=== PATIENT | male | born 1960 | race Two or more races ===

== ENCOUNTER → 2016-08-27 | Outpatient (REF) | payer OTHER ==
[2016-08-27 12:55] LABS: ALBUMIN 3.4 GM/DL (3.2-5.2); ALKALINE PHOSPHATASE 173 U/L (45-117); ALT/SGPT 25 U/L (12-78); ANION GAP 8 MEQ/L (8-16); AST/SGOT 23 U/L (15-37); BILIRUBIN,TOTAL 0.6 MG/DL (0.2-1.0); BLOOD UREA NITROGEN 10 MG/DL (7-18); CALCIUM LEVEL 8.2 MG/DL (8.5-10.1); CARBON DIOXIDE LEVEL 28 MEQ/L (21-32); CHLORIDE LEVEL 105 MEQ/L (98-107); CREATININE FOR GFR 0.89 MG/DL (0.70-1.30); GLOMERULAR FILTRATION RATE > 60.0 (>56); GLUCOSE, FASTING 98 MG/DL (70-105); SODIUM LEVEL 141 MEQ/L (136-145); TOTAL PROTEIN 6.5 GM/DL (6.4-8.2)
[2016-08-27 13:20] LABS: MEAN CORPUSCULAR HGB CONC 33.6 g/dl (32.0-36.5); MEAN CORPUSCULAR VOLUME 86.2 fl (80.0-96.0); RED CELL DISTRIBUTION WIDTH 12.9 % (11.5-14.5); WHITE BLOOD COUNT 3.2 K/mm3 (4.0-10.0)
[2016-08-29 00:06] LABS: PSA TOTAL 0.9 ng/mL (0.0-4.0)
== END ==
LOC: M SFHCLERA 08:06
PROVIDERS: ATTEND Family Medicine
DX: R35.0 Frequency of micturition (principal); R07.9 Chest pain, unspecified

== ENCOUNTER → 2016-09-09 | Outpatient (CLI) | payer OTHER ==
--- NOTE | 2016-09-09 10:12 | REP ---
PA LATERAL CHEST: 09/09/2016. Clinical history: Cough. Pain in the right chest area. Findings: No prior study. Two-view show the lungs marginally adequate in the degree of inflation. Some crowded markings in the bases. There is no effusion or dense consolidation. There are a few cuffed bronchi in the perihilar regions that might reflect reactive airway disease or bronchitis. No mass or nodule. Heart not enlarged for this degree of inflation. There is no vascular redistribution or edema. The aorta is normal. Airway intact. The bony thorax shows no acute compression deformity. There are some small osteophytes mid and lower thoracic spine anteriorly. Impression: 1. Some minor perihilar changes of bronchitis or reactive airway disease without dense consolidation, effusion, atelectasis or mass. 2. Degenerative changes in the spine. 3. No cardiomegaly, edema, pneumothorax or acute bony finding. Signed by Rishi Amado MD 09/09/2016 03:29 P
== END ==
LOC: M LRY 09:21
PROVIDERS: ATTEND Family Medicine
DX: R74.8 Abnormal levels of other serum enzymes (principal); R05 Cough

== ENCOUNTER → 2016-09-09 | Outpatient (REF) | payer OTHER ==
[2016-09-09 11:49] LABS: PHOSPHORUS LEVEL 2.6 MG/DL (2.5-4.9)
[2016-09-09 14:45] LABS: FREE T4 1.14 NG/DL (0.76-1.46)
== END ==
LOC: M SFHCLERA 09:19
PROVIDERS: ATTEND Family Medicine
DX: R74.8 Abnormal levels of other serum enzymes (principal); E34.9 Endocrine disorder, unspecified

== ENCOUNTER → 2016-09-09 | Outpatient (CLI) | payer OTHER | LOC: M LRY 09:42 | PROVIDERS: ATTEND Family Medicine | DX: R74.8 Abnormal levels of other serum enzymes (principal); R05 Cough ==

== ENCOUNTER → 2016-09-29 | Outpatient (CLI) | payer OTHER ==
--- NOTE | 2016-09-30 04:18 | REP ---
Clinical: Elevated parathyroid hormone levels. Technique: Real time elizabeth scale ultrasound examination using linear high frequency transducer. Findings: The thyroid gland is normal in contour, size, echogenicity, and overall appearance without nodule or cystic changes appreciated. Right lobe measures 5.1 x 1.4 x 1.7 cm. Left lobe measures 4.0 x 1.7 x 1.6 cm. Isthmus measures 4.1 mm in width. Parathyroid glands are not visualized. A few scattered normal appearing lymph nodes identified. Impression: Normal thyroid gland. Parathyroid glands not visualized. Signed by Claude Baxter MD 09/30/2016 04:10 A
--- NOTE | 2016-10-02 10:45 | REP ---
Clinical: Elevated liver function tests. Technique: Transabdominal pelvic ultrasound using curved array transducer. Findings: Examination is limited due to technical factors and body habitus. Liver and pancreas are normal in contour, size, and echogenicity without focal hepatic or pancreatic lesions identified. The gallbladder is normal and without gallstones, wall thickening, or pericholecystic fluid. Biliary ductal dilatation is appreciated and the common bile duct measures 4.6 mm diameter. Right kidney is normal in reniform shape without hydronephrosis and measures 9.8 x 5.8 x 4.9 cm. No obvious ascites. Impression: Limited examination. No obvious abnormality noted. Signed by Claude Baxter MD 09/30/2016 03:48 A
== END ==
LOC: M LRY 08:51
PROVIDERS: ATTEND Family Medicine
DX: R74.8 Abnormal levels of other serum enzymes (principal); E34.9 Endocrine disorder, unspecified

== ENCOUNTER → 2016-12-14 | Outpatient (REF) | payer OTHER | LOC: M SMT 12:52 | PROVIDERS: ATTEND Nurse Practitioner Women's Health | DX: R35.0 Frequency of micturition (principal) ==

== ENCOUNTER → 2017-02-23 | Outpatient (REF) | payer OTHER | LOC: M LABDRAW1 11:12 | PROVIDERS: ATTEND Internal Medicine Endocrinology, Diabetes & Metabolism | DX: E21.1 Secondary hyperparathyroidism, not elsewhere classified (principal) ==

== ENCOUNTER → 2017-04-19 | Outpatient (REF) | payer OTHER ==
[2017-04-19 12:24] LABS: ANION GAP 6 MEQ/L (8-16); BLOOD UREA NITROGEN 16 MG/DL (7-18); CALCIUM LEVEL 9.1 MG/DL (8.5-10.1); CARBON DIOXIDE LEVEL 31 MEQ/L (21-32); CHLORIDE LEVEL 105 MEQ/L (98-107); CREATININE FOR GFR 0.82 MG/DL (0.70-1.30); GLOMERULAR FILTRATION RATE > 60.0 (>56); GLUCOSE, FASTING 96 MG/DL (70-105); POTASSIUM SERUM 4.6 MEQ/L (3.5-5.1); SODIUM LEVEL 142 MEQ/L (136-145)
== END ==
LOC: M SFHCLERA 07:59
PROVIDERS: ATTEND Family Medicine
DX: E55.9 Vitamin D deficiency, unspecified (principal); I25.2 Old myocardial infarction; G47.33 Obstructive sleep apnea (adult) (pediatric); R35.0 Frequency of micturition

== ENCOUNTER → 2017-06-16 | Outpatient (REF) | payer OTHER ==
[2017-06-16 11:40] LABS: TOTAL 25(OH) VITAMIN D 24.5 NG/ML (30.0-100.0)
[2017-06-16 12:26] LABS: CALCIUM LEVEL 9.1 MG/DL (8.5-10.1)
[2017-06-16 12:26] LABS: ALKALINE PHOSPHATASE 186 U/L (45-117)
[2017-06-19 14:11] LABS: ALK PHOSPHATASE BONE SPECIFIC 22.3 ug/L (7.5-26.1)
== END ==
LOC: M LABDRAW1 11:00
DX: E21.1 Secondary hyperparathyroidism, not elsewhere classified (principal)
CPT/HCPCS: 82310

== ENCOUNTER → 2017-12-09 | Outpatient (REF) | payer OTHER ==
[2017-12-09 20:35] LABS: BASO % 0.4 % (0.0-1.0); EOS # 0.1 10^3/uL (0.0-0.50); EOS % 1.3 % (0.0-3.0); HEMATOCRIT 47.2 % (42.0-52.0); HEMOGLOBIN 15.5 g/dl (13.5-17.5); IMMATURE GRANULOCYTE % 0.6 % (0-3.0); LYMPH # 1.4 10^3/uL (1.5-4.5); LYMPH % 20.9 % (24.0-44.0); MEAN CORPUSCULAR HEMOGLOBIN 29.9 pg (27.0-33.0); MEAN CORPUSCULAR HGB CONC 32.8 g/dl (32.0-36.5); MEAN CORPUSCULAR VOLUME 90.9 fl (80.0-96.0); MONO # 0.5 10^3/uL (0.0-0.8); MONO % 6.8 % (0.0-5.0); NEUTROPHILS # 4.7 10^3/uL (1.8-7.7); PLATELET COUNT, AUTOMATED 255 10^3/uL (150-450); RED BLOOD COUNT 5.19 10^6/uL (4.30-6.10); RED CELL DISTRIBUTION WIDTH 13.2 % (11.5-14.5); WHITE BLOOD COUNT 6.8 10^3/uL (4.0-10.0)
[2017-12-09 20:42] LABS: ESTIMATED AVERAGE GLUCOSE 108 MG/DL (60-110); HEMOGLOBIN A1c 5.4 %
[2017-12-09 20:45] LABS: ALBUMIN 3.5 GM/DL (3.2-5.2); ALBUMIN/GLOBULIN RATIO 1.13 (1.00-1.93); ALKALINE PHOSPHATASE 198 U/L (45-117); ALT/SGPT 24 U/L (12-78); ANION GAP 8 MEQ/L (8-16); AST/SGOT 20 U/L (7-37); BILIRUBIN,TOTAL 0.5 MG/DL (0.2-1.0); BLOOD UREA NITROGEN 15 MG/DL (7-18); CALCIUM LEVEL 8.5 MG/DL (8.5-10.1); CARBON DIOXIDE LEVEL 30 MEQ/L (21-32); CHLORIDE LEVEL 105 MEQ/L (98-107); CHOLESTEROL LEVEL 231 MG/DL (<200); CHOLESTEROL RISK RATIO 4.442 (<5); GLOMERULAR FILTRATION RATE > 60.0 (>56); GLUCOSE, FASTING 92 MG/DL (70-100); HDL CHOLESTEROL 52 MG/DL (>40); LDL CHOLESTEROL 156.4 MG/DL (<100); NON-HDL-C 179 MG/DL; SODIUM LEVEL 143 MEQ/L (136-145); TOTAL 25(OH) VITAMIN D 20.8 NG/ML (30.0-100.0); TOTAL PROTEIN 6.6 GM/DL (6.4-8.2); TRIGLYCERIDES LEVEL 113 MG/DL (<150)
== END ==
LOC: M SFHCLERA 14:51
DX: E66.01 Morbid (severe) obesity due to excess calories (principal); E55.9 Vitamin D deficiency, unspecified

== ENCOUNTER → 2017-12-09 | Outpatient (CLI) | payer OTHER | LOC: M LRY 15:53 | DX: D17.1 Benign lipomatous neoplasm of skin and subcutaneous tissue of trunk (principal) | CPT/HCPCS: 76882 ==

== ENCOUNTER → 2018-03-21 | Outpatient (CLI) | payer OTHER | LOC: M CARPUL 08:05 | DX: M79.89 Other specified soft tissue disorders (principal) | CPT/HCPCS: 93306 ==

== ENCOUNTER → 2018-04-11 | Outpatient (REF) | payer OTHER ==
[2018-04-11 12:01] LABS: ANION GAP 7 MEQ/L (8-16); BLOOD UREA NITROGEN 10 MG/DL (7-18); CALCIUM LEVEL 8.7 MG/DL (8.5-10.1); CARBON DIOXIDE LEVEL 30 MEQ/L (21-32); CHLORIDE LEVEL 105 MEQ/L (98-107); GLOMERULAR FILTRATION RATE > 60.0 (>56); GLUCOSE, FASTING 109 MG/DL (70-100); POTASSIUM SERUM 3.9 MEQ/L (3.5-5.1); SODIUM LEVEL 142 MEQ/L (136-145)
== END ==
LOC: M SFHCLERA 09:12
DX: M79.89 Other specified soft tissue disorders (principal)

== ENCOUNTER 2018-04-13 20:40 | Inpatient (IN) | payer OTHER ==
[2018-04-13] MEDS: HYDROMORPHONE HCL 0.5 MG/ 0.5 ML SYRINGE (J1170 PER 1) IV ×2 (21:18→22:11)
[2018-04-13 21:25] LABS: BASO % 0.3 % (0.0-1.0); EOS # 0.1 10^3/uL (0.0-0.50); HEMOGLOBIN 14.6 g/dl (13.5-17.5); IMMATURE GRANULOCYTE % 0.4 % (0-3.0); LYMPH # 1.9 10^3/uL (1.5-4.5); LYMPH % 20.1 % (24.0-44.0); MEAN CORPUSCULAR HEMOGLOBIN 30.2 pg (27.0-33.0); MEAN CORPUSCULAR VOLUME 88.8 fl (80.0-96.0); MONO # 0.6 10^3/uL (0.0-0.8); MONO % 6.8 % (0.0-5.0); NEUTROPHILS # 6.6 10^3/uL (1.8-7.7); NEUTROPHILS % 71.4 % (36.0-66.0); PLATELET COUNT, AUTOMATED 245 10^3/uL (150-450); RED BLOOD COUNT 4.84 10^6/uL (4.30-6.10); WHITE BLOOD COUNT 9.2 10^3/uL (4.0-10.0)
[2018-04-13] MEDS: HEPARIN SOD (PORCINE) 5000 UNITS/ML VIAL IV (21:29)
[2018-04-13] MEDS: HEPARIN DRIP 25,000 UNITS in APPROPRIATE DILUENT 1 EA IV (21:33)
[2018-04-13] MEDS ORDERED: ISOVUE-370 76% 100ML VIAL (Q9967) As Ordered (21:39)
[2018-04-13 21:40] LABS: INR 0.94; PROTHROMBIN TIME 12.7 SECONDS (12.1-14.4)
[2018-04-13 21:41] LABS: PARTIAL THROMBOPLASTIN TIME 26.8 SECONDS (25.4-37.6)
[2018-04-13 21:53] LABS: ANION GAP 8 MEQ/L (8-16); BLOOD UREA NITROGEN 10 MG/DL (7-18); CALCIUM LEVEL 8.4 MG/DL (8.5-10.1); CARBON DIOXIDE LEVEL 27 MEQ/L (21-32); CHLORIDE LEVEL 106 MEQ/L (98-107); GLOMERULAR FILTRATION RATE > 60.0 (>56); GLUCOSE, FASTING 131 MG/DL (70-100); POTASSIUM SERUM 3.7 MEQ/L (3.5-5.1); SODIUM LEVEL 141 MEQ/L (136-145)
[2018-04-13] MEDS ORDERED: NS 1,000 ML IV (23:44)
[2018-04-13] MEDS: LR 1,000 ML IV (23:44)
[2018-04-13] MEDS ORDERED: diphenhydrAMINE INJ 50MG/ML VIAL (J1200) IV (23:45)
[2018-04-13] MEDS ORDERED: BISACODYL 10 MG SUPP PR (23:45)
[2018-04-13] MEDS ORDERED: NALOXONE INJ 0.4 MG/1 ML VIAL (J2310) IV (23:45)
[2018-04-13] MEDS ORDERED: EPIDURAL/PCA KEYS XX (23:45)
[2018-04-13] MEDS ORDERED: NALBUPHINE HCL 10 MG/ML AMP (J2300) IV (23:45)
[2018-04-13] MEDS ORDERED: ONDANSETRON 4MG/2ML VIAL (J2405) IV (23:45)
[2018-04-14 02:13] LABS: HEMATOCRIT 42.3 % (42.0-52.0); HEMOGLOBIN 14.1 g/dl (13.5-17.5); MEAN CORPUSCULAR HEMOGLOBIN 30.1 pg (27.0-33.0); MEAN CORPUSCULAR HGB CONC 33.3 g/dl (32.0-36.5); MEAN CORPUSCULAR VOLUME 90.4 fl (80.0-96.0); PLATELET COUNT, AUTOMATED 222 10^3/uL (150-450); RED BLOOD COUNT 4.68 10^6/uL (4.30-6.10); WHITE BLOOD COUNT 9.6 10^3/uL (4.0-10.0)
[2018-04-14 02:25] LABS: PARTIAL THROMBOPLASTIN TIME 43.8 SECONDS (25.4-37.6)
[2018-04-14] MEDS: HEPARIN DRIP 25,000 UNITS in APPROPRIATE DILUENT 1 EA IV (03:42)
[2018-04-14 04:02] LABS: PARTIAL THROMBOPLASTIN TIME 37.3 SECONDS (25.4-37.6)
[2018-04-14] MEDS: MORPHINE 1MG/ML IN 0.9% NACL 100ML IV BAG IV (06:43)
[2018-04-14 06:54] LABS: BASO % 0.5 % (0.0-1.0); EOS # 0.1 10^3/uL (0.0-0.50); EOS % 0.8 % (0.0-3.0); HEMATOCRIT 44.1 % (42.0-52.0); HEMOGLOBIN 14.6 g/dl (13.5-17.5); IMMATURE GRANULOCYTE % 0.3 % (0-3.0); LYMPH # 1.7 10^3/uL (1.5-4.5); LYMPH % 22.3 % (24.0-44.0); MEAN CORPUSCULAR HEMOGLOBIN 30.4 pg (27.0-33.0); MEAN CORPUSCULAR HGB CONC 33.1 g/dl (32.0-36.5); MEAN CORPUSCULAR VOLUME 91.7 fl (80.0-96.0); MONO # 0.6 10^3/uL (0.0-0.8); MONO % 7.5 % (0.0-5.0); NEUTROPHILS # 5.3 10^3/uL (1.8-7.7); NEUTROPHILS % 68.6 % (36.0-66.0); PLATELET COUNT, AUTOMATED 190 10^3/uL (150-450); RED BLOOD COUNT 4.81 10^6/uL (4.30-6.10); RED CELL DISTRIBUTION WIDTH 13.2 % (11.5-14.5); WHITE BLOOD COUNT 7.8 10^3/uL (4.0-10.0)
[2018-04-14 07:29] LABS: ANION GAP 7 MEQ/L (8-16); BLOOD UREA NITROGEN 11 MG/DL (7-18); CALCIUM LEVEL 8.3 MG/DL (8.5-10.1); CARBON DIOXIDE LEVEL 25 MEQ/L (21-32); CHLORIDE LEVEL 109 MEQ/L (98-107); GLOMERULAR FILTRATION RATE > 60.0 (>56); GLUCOSE, FASTING 90 MG/DL (70-100); SODIUM LEVEL 141 MEQ/L (136-145)
[2018-04-14] MEDS: DOCUSATE SODIUM 100 MG CAP PO ×2 (09:00→20:17)
[2018-04-14] MEDS: SENOKOT S TAB PO ×2 (09:00→20:17)
[2018-04-14] MEDS: FUROSEMIDE 20 MG TAB PO (09:00)
[2018-04-14 10:00] LABS: PARTIAL THROMBOPLASTIN TIME 44.5 SECONDS (25.4-37.6)
[2018-04-14] MEDS: LR 1,000 ML IV ×3 (10:44→20:18)
[2018-04-14] MEDS: PANTOPRAZOLE 40MG TAB (PROTONIX) PO (10:45)
[2018-04-14] MEDS ORDERED: KETOROLAC 60 MG/2 ML VIAL (J1885) As Ordered (13:23)
[2018-04-14] MEDS ORDERED: dexameTHASONE 4 MG/ML 1ML VIAL (J1100) As Ordered (13:23)
[2018-04-14] MEDS ORDERED: fentaNYL 100 MCG/2 ML INJECTION (J3010) As Ordered (13:23)
[2018-04-14] MEDS ORDERED: ROCURONIUM BROMIDE 50 MG/5 ML VIAL As Ordered (13:23)
[2018-04-14] MEDS ORDERED: ONDANSETRON 4MG/2ML VIAL (J2405) As Ordered ×2 (13:23→16:22)
[2018-04-14] MEDS ORDERED: PROPOFOL 200 MG/20 ML VIAL As Ordered (13:23)
[2018-04-14] MEDS ORDERED: LIDOCAINE 2% INJ 100 MG/5 ML SDV (FOR ANES.) As Ordered (13:23)
[2018-04-14] MEDS ORDERED: MIDAZOLAM INJ 2 MG/2 ML VIAL (J2250) As Ordered (13:24)
[2018-04-14] MEDS: ceFAZolin 2 GM/D5W 50 ML IV BAG (J0690 PER 500MG) As Ordered (14:50)
[2018-04-14] MEDS ORDERED: HEPARIN 25,000 UNITS/250 ML D5W BAG (100 UNITS/ML) As Ordered (14:51)
[2018-04-14] MEDS: LIDOCAINE 1% SDV INJ 30 ML VIAL As Ordered (14:59)
[2018-04-14] MEDS: BUPIVACAINE HCL 0.5% 30 ML VIAL As Ordered (14:59)
[2018-04-14] MEDS ORDERED: HEPARIN SOD (PORCINE) 5000 UNITS/ML VIAL As Ordered (15:07)
[2018-04-14] MEDS: THROMBIN SOLN 20,000 UNITS KIT As Ordered (15:10)
[2018-04-14] MEDS: HEPARIN SOD (PORCINE) 5000 UNITS/ML VIAL As Ordered (15:11)
[2018-04-14] MEDS ORDERED: SUGAMMADEX SODIUM 500 MG/5 ML VIAL (BRIDION) As Ordered (15:36)
[2018-04-14] MEDS: ONDANSETRON 4MG/2ML VIAL (J2405) IV (16:28)
[2018-04-14] MEDS ORDERED: MORPHINE 10 MG/ML 1ML VIAL (J2270) IV (16:30)
[2018-04-14] MEDS ORDERED: PERCOCET 5MG/325MG TAB PO (16:30)
[2018-04-14] MEDS ORDERED: fentaNYL 100 MCG/2 ML INJECTION (J3010) IV (16:30)
[2018-04-14 20:15] LABS: PARTIAL THROMBOPLASTIN TIME 84.3 SECONDS (25.4-37.6)
[2018-04-14] MEDS: ACETAMINOPHEN TAB 650MG DOSE (2X325MG) PO (20:17)
[2018-04-15] MEDS: LR 1,000 ML IV (01:01)
[2018-04-15 03:37] LABS: PARTIAL THROMBOPLASTIN TIME 57.2 SECONDS (25.4-37.6)
[2018-04-15] MEDS: HEPARIN SOD (PORCINE) 5000 UNITS/ML VIAL IV (03:54)
[2018-04-15] MEDS: HEPARIN DRIP 25,000 UNITS in APPROPRIATE DILUENT 1 EA IV ×2 (06:35→23:25)
[2018-04-15 08:59] LABS: ANION GAP 6 MEQ/L (8-16); BLOOD UREA NITROGEN 10 MG/DL (7-18); CALCIUM LEVEL 8.3 MG/DL (8.5-10.1); CARBON DIOXIDE LEVEL 29 MEQ/L (21-32); CHLORIDE LEVEL 105 MEQ/L (98-107); GLOMERULAR FILTRATION RATE > 60.0 (>56); GLUCOSE, FASTING 139 MG/DL (70-100); POTASSIUM SERUM 4.6 MEQ/L (3.5-5.1); SODIUM LEVEL 140 MEQ/L (136-145)
[2018-04-15 09:01] LABS: HEMATOCRIT 40.4 % (42.0-52.0); HEMOGLOBIN 13.3 g/dl (13.5-17.5); MEAN CORPUSCULAR HEMOGLOBIN 30.2 pg (27.0-33.0); MEAN CORPUSCULAR HGB CONC 32.9 g/dl (32.0-36.5); MEAN CORPUSCULAR VOLUME 91.6 fl (80.0-96.0); PLATELET COUNT, AUTOMATED 211 10^3/uL (150-450); RED BLOOD COUNT 4.41 10^6/uL (4.30-6.10); RED CELL DISTRIBUTION WIDTH 12.8 % (11.5-14.5); WHITE BLOOD COUNT 8.1 10^3/uL (4.0-10.0)
[2018-04-15] MEDS: SENOKOT S TAB PO ×2 (09:13→20:13)
[2018-04-15] MEDS: DOCUSATE SODIUM 100 MG CAP PO ×2 (09:13→20:13)
[2018-04-15] MEDS: PANTOPRAZOLE 40MG TAB (PROTONIX) PO (09:13)
[2018-04-15] MEDS: FUROSEMIDE 20 MG TAB PO (09:13)
[2018-04-15] MEDS: PERCOCET 5MG/325MG TAB PO ×2 (10:30→20:14)
[2018-04-15 17:19] LABS: PARTIAL THROMBOPLASTIN TIME 70.5 SECONDS (25.4-37.6)
[2018-04-16 06:45] LABS: PARTIAL THROMBOPLASTIN TIME 68.2 SECONDS (25.4-37.6)
[2018-04-16] MEDS: SENOKOT S TAB PO ×2 (08:27→20:15)
[2018-04-16] MEDS: PANTOPRAZOLE 40MG TAB (PROTONIX) PO (08:28)
[2018-04-16] MEDS: FUROSEMIDE 20 MG TAB PO (08:28)
[2018-04-16] MEDS: DOCUSATE SODIUM 100 MG CAP PO ×2 (08:28→20:14)
[2018-04-16] MEDS: HEPARIN DRIP 25,000 UNITS in APPROPRIATE DILUENT 1 EA IV (13:34)
[2018-04-16] MEDS: PERCOCET 5MG/325MG TAB PO ×2 (17:38→20:15)
[2018-04-17] MEDS: HEPARIN DRIP 25,000 UNITS in APPROPRIATE DILUENT 1 EA IV ×2 (02:47→15:22)
[2018-04-17] MEDS: PERCOCET 5MG/325MG TAB PO ×2 (03:37→09:06)
[2018-04-17] MEDS: ACETAMINOPHEN TAB 650MG DOSE (2X325MG) PO (05:40)
[2018-04-17 06:16] LABS: PARTIAL THROMBOPLASTIN TIME 61.3 SECONDS (25.4-37.6)
[2018-04-17] MEDS: HEPARIN SOD (PORCINE) 5000 UNITS/ML VIAL IV (07:13)
[2018-04-17] MEDS: SENOKOT S TAB PO ×2 (08:02→20:11)
[2018-04-17] MEDS: PANTOPRAZOLE 40MG TAB (PROTONIX) PO (08:02)
[2018-04-17] MEDS: DOCUSATE SODIUM 100 MG CAP PO ×2 (08:02→20:12)
[2018-04-17] MEDS: FUROSEMIDE 20 MG TAB PO (08:03)
[2018-04-17 12:41] LABS: PARTIAL THROMBOPLASTIN TIME 105.5 SECONDS (25.4-37.6)
[2018-04-17 18:32] LABS: PARTIAL THROMBOPLASTIN TIME 67.3 SECONDS (25.4-37.6)
[2018-04-17] MEDS: MOM 30ML SUSPENSION UDC PO (20:11)
[2018-04-18 00:42] LABS: PARTIAL THROMBOPLASTIN TIME 56.5 SECONDS (25.4-37.6)
[2018-04-18] MEDS: HEPARIN SOD (PORCINE) 5000 UNITS/ML VIAL IV ×2 (00:59→14:01)
[2018-04-18] MEDS: HEPARIN DRIP 25,000 UNITS in APPROPRIATE DILUENT 1 EA IV ×2 (04:41→18:26)
[2018-04-18 07:27] LABS: HEMATOCRIT 41.1 % (42.0-52.0); HEMOGLOBIN 13.7 g/dl (13.5-17.5); MEAN CORPUSCULAR HEMOGLOBIN 30.2 pg (27.0-33.0); MEAN CORPUSCULAR HGB CONC 33.3 g/dl (32.0-36.5); MEAN CORPUSCULAR VOLUME 90.7 fl (80.0-96.0); PLATELET COUNT, AUTOMATED 197 10^3/uL (150-450); RED BLOOD COUNT 4.53 10^6/uL (4.30-6.10); RED CELL DISTRIBUTION WIDTH 13.1 % (11.5-14.5); WHITE BLOOD COUNT 6.5 10^3/uL (4.0-10.0)
[2018-04-18 07:39] LABS: PARTIAL THROMBOPLASTIN TIME 98.4 SECONDS (25.4-37.6)
[2018-04-18 07:48] LABS: ALBUMIN 2.7 GM/DL (3.2-5.2); ANION GAP 3 MEQ/L (8-16); BLOOD UREA NITROGEN 11 MG/DL (7-18); CALCIUM LEVEL 8.6 MG/DL (8.5-10.1); CARBON DIOXIDE LEVEL 33 MEQ/L (21-32); CHLORIDE LEVEL 102 MEQ/L (98-107); CREATININE FOR GFR 0.78 MG/DL (0.70-1.30); GLOMERULAR FILTRATION RATE > 60.0 (>56); GLUCOSE, FASTING 95 MG/DL (70-100); PHOSPHORUS LEVEL 2.8 MG/DL (2.5-4.9); POTASSIUM SERUM 4.1 MEQ/L (3.5-5.1); SODIUM LEVEL 138 MEQ/L (136-145)
[2018-04-18] MEDS: SENOKOT S TAB PO ×2 (09:00→20:22)
[2018-04-18] MEDS: DOCUSATE SODIUM 100 MG CAP PO ×2 (09:00→20:22)
[2018-04-18] MEDS: FUROSEMIDE 20 MG TAB PO (09:00)
[2018-04-18] MEDS: PANTOPRAZOLE 40MG TAB (PROTONIX) PO (09:00)
[2018-04-18 13:12] LABS: PARTIAL THROMBOPLASTIN TIME 60.9 SECONDS (25.4-37.6)
[2018-04-18 20:05] LABS: PARTIAL THROMBOPLASTIN TIME 96.8 SECONDS (25.4-37.6)
[2018-04-19 02:05] LABS: PARTIAL THROMBOPLASTIN TIME 85.9 SECONDS (25.4-37.6)
[2018-04-19] MEDS: ACETAMINOPHEN TAB 650MG DOSE (2X325MG) PO ×2 (03:46→08:47)
[2018-04-19] MEDS: HEPARIN DRIP 25,000 UNITS in APPROPRIATE DILUENT 1 EA IV (06:10)
[2018-04-19 08:24] LABS: BASO % 0.3 % (0.0-1.0); EOS # 0.3 10^3/uL (0.0-0.50); EOS % 3.7 % (0.0-3.0); HEMOGLOBIN 14.3 g/dl (13.5-17.5); IMMATURE GRANULOCYTE % 0.7 % (0-3.0); LYMPH # 1.3 10^3/uL (1.5-4.5); LYMPH % 19.2 % (24.0-44.0); MEAN CORPUSCULAR HEMOGLOBIN 29.8 pg (27.0-33.0); MEAN CORPUSCULAR HGB CONC 33.3 g/dl (32.0-36.5); MEAN CORPUSCULAR VOLUME 89.6 fl (80.0-96.0); MONO # 0.5 10^3/uL (0.0-0.8); MONO % 7.1 % (0.0-5.0); NEUTROPHILS # 4.6 10^3/uL (1.8-7.7); PLATELET COUNT, AUTOMATED 194 10^3/uL (150-450); WHITE BLOOD COUNT 6.7 10^3/uL (4.0-10.0)
[2018-04-19 08:38] LABS: PARTIAL THROMBOPLASTIN TIME 93.2 SECONDS (25.4-37.6)
[2018-04-19] MEDS: PANTOPRAZOLE 40MG TAB (PROTONIX) PO (08:47)
[2018-04-19] MEDS: ASPIRIN 81 MG ENTERIC TAB PO (08:48)
[2018-04-19] MEDS: FUROSEMIDE 20 MG TAB PO (08:48)
[2018-04-19] MEDS: DOCUSATE SODIUM 100 MG CAP PO ×2 (08:48→20:30)
[2018-04-19] MEDS: SENOKOT S TAB PO ×2 (08:48→20:30)
[2018-04-19 10:15] LABS: DRVV SCREEN 42.6 SEC
[2018-04-19] MEDS: LR 1,000 ML IV (16:25)
[2018-04-19] MEDS ORDERED: fentaNYL 100 MCG/2 ML INJECTION (J3010) IV (16:30)
[2018-04-19] MEDS ORDERED: MORPHINE 10 MG/ML 1ML VIAL (J2270) IV (16:30)
[2018-04-19] MEDS ORDERED: MORPHINE 1MG/ML IN 0.9% NACL 100ML IV BAG IV (16:30)
[2018-04-19] MEDS ORDERED: NALBUPHINE HCL 10 MG/ML AMP (J2300) IV (16:30)
[2018-04-19] MEDS ORDERED: diphenhydrAMINE INJ 50MG/ML VIAL (J1200) IV (16:30)
[2018-04-19] MEDS ORDERED: EPIDURAL/PCA KEYS XX (16:30)
[2018-04-19] MEDS ORDERED: PERCOCET 5MG/325MG TAB PO (16:30)
[2018-04-19] MEDS ORDERED: ONDANSETRON 4MG/2ML VIAL (J2405) IV ×2 (16:30)
[2018-04-19] MEDS ORDERED: NALOXONE INJ 0.4 MG/1 ML VIAL (J2310) IV (16:30)
[2018-04-19] MEDS: APIXABAN 5 MG TAB (ELIQUIS) PO (18:45)
[2018-04-19 20:53] LABS: PARTIAL THROMBOPLASTIN TIME 31.7 SECONDS (25.4-37.6)
[2018-04-20] MEDS: LR 1,000 ML IV (04:55)
[2018-04-20] MEDS: PERCOCET 5MG/325MG TAB PO (04:57)
[2018-04-20] MEDS: ASPIRIN 81 MG ENTERIC TAB PO (08:35)
[2018-04-20] MEDS: APIXABAN 5 MG TAB (ELIQUIS) PO (08:36)
[2018-04-20] MEDS: FUROSEMIDE 20 MG TAB PO (08:36)
[2018-04-20] MEDS: DOCUSATE SODIUM 100 MG CAP PO (08:36)
[2018-04-20] MEDS: SENOKOT S TAB PO (08:36)
[2018-04-20] MEDS: PANTOPRAZOLE 40MG TAB (PROTONIX) PO (08:36)
[2018-04-25 14:09] LABS: ANTINUCLEAR ANTIBODIES DIRECT Negative (Negative); CARDIOLIPIN IGA ANTIBODY <9 APL U/mL (0-11); CARDIOLIPIN IGG ANTIBODY <9 GPL U/mL (0-14); CARDIOLIPIN IGM ANTIBODY 9 MPL U/mL (0-12)
== END 2018-04-20 15:15 | disposition home or self-care (01) | DRG 271 ==
LOC: M MSPAV 04-14 05:41 → M ED 20:40 → M ED INP 23:44
PROC: 04CJ0ZZ Extirpation of Matter from Left External Iliac Artery, Open Approach (ICD-10-PCS; principal; 2018-04-14 11:05)
PROC: 04CL0ZZ Extirpation of Matter from Left Femoral Artery, Open Approach (ICD-10-PCS; 2018-04-14 11:05)
PROC: 04CD0ZZ Extirpation of Matter from Left Common Iliac Artery, Open Approach (ICD-10-PCS; 2018-04-14 11:05)
PROC: 04CU0ZZ Extirpation of Matter from Left Peroneal Artery, Open Approach (ICD-10-PCS; 2018-04-14 11:05)
PROC: 04CN0ZZ Extirpation of Matter from Left Popliteal Artery, Open Approach (ICD-10-PCS; 2018-04-14 11:05)
DX: I70.202 Unspecified atherosclerosis of native arteries of extremities, left leg (principal); I82.412 Acute embolism and thrombosis of left femoral vein; Z68.42 Body mass index [BMI] 45.0-49.9, adult; I70.92 Chronic total occlusion of artery of the extremities; I48.91 Unspecified atrial fibrillation; E66.01 Morbid (severe) obesity due to excess calories; R31.9 Hematuria, unspecified; E78.5 Hyperlipidemia, unspecified; N40.0 Benign prostatic hyperplasia without lower urinary tract symptoms; I25.2 Old myocardial infarction; G47.33 Obstructive sleep apnea (adult) (pediatric); Z96.652 Presence of left artificial knee joint; Z79.891 Long term (current) use of opiate analgesic; Z79.899 Other long term (current) drug therapy; Z86.718 Personal history of other venous thrombosis and embolism; Z98.84 Bariatric surgery status

== ENCOUNTER → 2018-05-20 | Outpatient (REF) | payer OTHER ==
[~2018-05-20] MED LIST: ARTI99.0 OU; ASPI81CH PO; ELIQ5TAB PO; FURO20TA2 PO; PERCOCET PO; TRAM50TA2 PO; TYLE500T78 PO
== END ==
LOC: M SFHCLERA 09:13
PROVIDERS: ATTEND Nurse Practitioner Family
DX: E55.9 Vitamin D deficiency, unspecified (principal); M79.89 Other specified soft tissue disorders

== ENCOUNTER → 2018-06-22 | Outpatient (REF) | payer OTHER ==
[2018-06-22 13:19] LABS: BASO % 0.7 % (0.0-1.0); EOS # 0.1 10^3/uL (0.0-0.50); EOS % 2.5 % (0.0-3.0); HEMATOCRIT 45.7 % (42.0-52.0); LYMPH # 1.8 10^3/uL (1.5-4.5); LYMPH % 31.2 % (24.0-44.0); MEAN CORPUSCULAR HGB CONC 32.8 g/dl (32.0-36.5); MEAN CORPUSCULAR VOLUME 88.2 fl (80.0-96.0); MONO # 0.4 10^3/uL (0.0-0.8); MONO % 6.8 % (0.0-5.0); NEUTROPHILS # 3.3 10^3/uL (1.8-7.7); NEUTROPHILS % 58.4 % (36.0-66.0); PLATELET COUNT, AUTOMATED 297 10^3/uL (150-450); RED BLOOD COUNT 5.18 10^6/uL (4.30-6.10); WHITE BLOOD COUNT 5.7 10^3/uL (4.0-10.0)
[2018-06-22 13:30] LABS: ALBUMIN 3.5 GM/DL (3.2-5.2); ALT/SGPT 18 U/L (12-78); BILIRUBIN,TOTAL 0.5 MG/DL (0.2-1.0); BLOOD UREA NITROGEN 10 MG/DL (7-18); CALCIUM LEVEL 8.7 MG/DL (8.5-10.1); CARBON DIOXIDE LEVEL 29 MEQ/L (21-32); CHLORIDE LEVEL 105 MEQ/L (98-107); GLOMERULAR FILTRATION RATE > 60.0 (>56); GLUCOSE, FASTING 93 MG/DL (70-100); POTASSIUM SERUM 4.4 MEQ/L (3.5-5.1); SODIUM LEVEL 139 MEQ/L (136-145); TOTAL PROTEIN 6.7 GM/DL (6.4-8.2)
== END ==
LOC: M SFHCLERA 09:05
PROVIDERS: ATTEND Family Medicine
DX: Z01.818 Encounter for other preprocedural examination (principal); D68.59 Other primary thrombophilia

== ENCOUNTER → 2018-06-30 | Outpatient (REF) | payer OTHER ==
[2018-06-30 17:36] LABS: FOLATE 3.7 NG/ML
[2018-07-05 14:17] LABS: VITAMIN B6,PYRIDOXAL PHOSPHATE 1.9 ug/L (5.3-46.7)
== END ==
LOC: M SFHCLERA 10:07
PROVIDERS: ATTEND Family Medicine
DX: E72.11 Homocystinuria (principal)

== ENCOUNTER → 2018-06-30 | Outpatient (CLI) | payer OTHER ==
--- NOTE | 2018-06-30 11:18 | REP ---
LEFT FOURTH DIGIT, FOUR VIEWS: There is no evidence of an acute fracture, dislocation or intrinsic bone disease. IMPRESSION: No fracture or dislocation. Electronically Signed by Fili Campoverde MD 06/30/2018 12:00 P
== END ==
LOC: M LRY 09:46
PROVIDERS: ATTEND Family Medicine
DX: M20.012 Mallet finger of left finger(s) (principal)

== ENCOUNTER → 2018-08-03 | Outpatient (CLI) | payer OTHER ==
--- NOTE | 2018-08-04 05:38 | REP ---
Clinical: Status post left iliac artery endarterectomy. Technique: Real time elizabeth scale and color Doppler evaluation of the left lower extremity arterial vasculature using linear high frequency transducer. Findings: The ankle to brachial index of the left lower extremity is 1.2. Color Doppler interrogation demonstrates normal triphasic wave patterns from the common femoral artery through the proximal posterior tibial artery and the visualized distal anterior tibial artery. Mild atheromatous plaquing is noted throughout the visualized left lower extremity. Monophasic wave pattern noted of the distal posterior tibial artery. PSV(cm/sec) LEFT Common femoral artery 81 cm/s triphasic Profunda femoris artery 84 cm/s triphasic Proximal superficial femoral artery 106 cm/s triphasic Mid superficial femoral artery 91 cm/s triphasic Distal superficial femoral artery 80 cm/s triphasic Popliteal artery 64 cm/s triphasic Proximal SUMI 53 cm/s triphasic Tibioperoneal trunk 35 cm/s triphasic Proximal MAC ARTIST 52 cm/s triphasic Distal MAC ARTIST 23 cm/s monophasic Distal SUMI 65 cm/s triphasic Impression: 1. Mild atherosclerotic changes. 2. Monophasic wave pattern through the distal MAC ARTIST. Electronically Signed by Claude Baxter MD 08/04/2018 05:30 A
== END ==
LOC: M RAD 07:06
PROVIDERS: ATTEND Surgery Vascular Surgery
DX: I74.3 Embolism and thrombosis of arteries of the lower extremities (principal); I70.202 Unspecified atherosclerosis of native arteries of extremities, left leg

== ENCOUNTER → 2018-10-27 | Outpatient (REF) | payer OTHER ==
[~2018-10-27] MED LIST changes: -ASPI81CH PO; +ASPI81CH49 PO
== END ==
LOC: M SFHCLERA 08:45
PROVIDERS: ATTEND Family Medicine
DX: Z01.84 Encounter for antibody response examination (principal); I10 Essential (primary) hypertension

== ENCOUNTER → 2018-10-28 | Outpatient (REF) | payer OTHER ==
[2018-10-28 11:54] LABS: ALBUMIN 3.1 GM/DL (3.2-5.2); ALT/SGPT 16 U/L (12-78); BILIRUBIN,TOTAL 0.9 MG/DL (0.2-1.0); BLOOD UREA NITROGEN 10 MG/DL (7-18); CALCIUM LEVEL 8.3 MG/DL (8.5-10.1); CARBON DIOXIDE LEVEL 30 MEQ/L (21-32); CHLORIDE LEVEL 106 MEQ/L (98-107); CHOLESTEROL LEVEL 159 MG/DL (<200); CHOLESTEROL RISK RATIO 3.117 (<5); CREATININE FOR GFR 0.78 MG/DL (0.70-1.30); GLOMERULAR FILTRATION RATE > 60.0 (>56); GLUCOSE, FASTING 87 MG/DL (70-100); HDL CHOLESTEROL 51 MG/DL (>40); LDL CHOLESTEROL 90 MG/DL (<100); NON-HDL-C 108 MG/DL; POTASSIUM SERUM 4.1 MEQ/L (3.5-5.1); SODIUM LEVEL 142 MEQ/L (136-145); TOTAL PROTEIN 6.2 GM/DL (6.4-8.2); TRIGLYCERIDES LEVEL 92 MG/DL (<150)
[2018-10-28 12:38] LABS: HEMOGLOBIN A1c 5.1 %
== END ==
LOC: M SFHCLERA 07:21
PROVIDERS: ATTEND Family Medicine
DX: Z01.84 Encounter for antibody response examination (principal); I10 Essential (primary) hypertension

== ENCOUNTER → 2019-02-06 | Outpatient (REF) | payer OTHER ==
[~2019-02-06] MED LIST changes: -ARTI99.0 OU; +ARTIDRO2 OU
== END ==
LOC: M SFHCLERA 07:35
PROVIDERS: ATTEND Family Medicine
DX: D68.59 Other primary thrombophilia (principal)

== ENCOUNTER 2019-03-17 08:14 | Outpatient (RCR) | payer OTHER | END 2019-03-30 | LOC: M PT 08:14 | PROVIDERS: ATTEND Family Medicine | DX: M79.89 Other specified soft tissue disorders (principal); Z89.511 Acquired absence of right leg below knee; Z89.512 Acquired absence of left leg below knee ==

== ENCOUNTER → 2019-03-20 | Outpatient (CLI) | payer OTHER ==
--- NOTE | 2019-03-20 18:43 | REP ---
Clinical: History of thromboembolism . Technique: Campoverde scale and color Doppler evaluation of the bilateral lower extremities using linear high frequency transducer including reflux evaluation . Findings: Ultrasound examination of the right and left lower extremity deep venous structures from the common femoral vein to the popliteal vein demonstrates normal compressibility flow and wave patterns in response to respiration and augmentation. There is no evidence for deep venous thrombosis. Evaluation of the right lower extremity demonstrates reflux through the proximal greater saphenous vein measuring 6.1 mm diameter with duration of 7.0 seconds, and mid greater saphenous vein measuring 4.8 mm diameter with a reflux duration 8.5 seconds. Reflux also identified through the common femoral vein, superficial femoral vein and popliteal vein. Evaluation of the left lower extremity demonstrates reflux through the greater saphenous vein. Proximal saphenous vein measures 5.2 mm diameter with reflux duration 7.0 seconds; the mid greater saphenous vein measures 3.8 mm diameter with reflux duration 7.1 seconds; distal greater saphenous vein measures 3.9 mm diameter with reflux duration 8.9 seconds. Reflux also identified through the common femoral vein, superficial femoral vein and popliteal vein. Impression: No evidence for deep venous thrombosis. Moderate reflux as noted above. Electronically Signed by Claude Baxter MD 03/20/2019 06:34 P
--- NOTE | 2019-03-20 18:48 | REP ---
Clinical: Symptoms related to atherosclerotic disease and intermittent claudication. Technique: Real time campoverde scale and color Doppler evaluation of the bilateral lower extremity arterial vasculature using linear high frequency transducer. Findings: Campoverde scale and color images demonstrate mild to moderate amounts of bilateral atheromatous plaquing. Right lower extremity without evidence for occlusion or stenosis. Left lower extremity demonstrates occlusion at the distal posterior tibial artery with revascularization distal to the area of occlusion. Triphasic arterial wave pattern noted bilaterally. Peak systolic velocities (cm/sec) RIGHT LEFT Common femoral artery 89 97 Profunda femoris 62 62 SFA (proximal) 114 96 SFA (mid) 107 77 SFA (distal) 77 50 Popliteal artery 78 53 SUMI (prox.) 44 47 Tibioperoneal trunk 56 58 SLUSHER OPERATOR (prox.) 50 55 SLUSHER OPERATOR (distal) 53 25* SUMI (distal) 44 55 * reversed distal to the site of occlusion. Impression: 1. Bilateral Atheromatous changes with short segment occlusion in the left distal posterior tibial artery demonstrating revascularization distal to the site of occlusion. Electronically Signed by Claude Baxter MD 03/20/2019 06:39 P
== END ==
LOC: M RAD 08:05
PROVIDERS: ATTEND Physician Assistant
DX: I87.2 Venous insufficiency (chronic) (peripheral) (principal); I74.3 Embolism and thrombosis of arteries of the lower extremities; Z86.718 Personal history of other venous thrombosis and embolism

== ENCOUNTER → 2019-04-11 | Outpatient (CLI) | payer OTHER ==
--- NOTE | 2019-04-11 08:51 | REP ---
Clinical: Cough. Technique: PA and lateral. Comparison: 09/09/2016. Findings: Mediastinum and cardiac silhouette are normal. Lung tenorio are clear. No focal consolidation, effusion, or pneumothorax. Skeletal structures intact. Impression: No focal consolidation. Electronically Signed by Claude Baxter MD 04/11/2019 08:42 A
== END ==
LOC: M LRY 08:01
PROVIDERS: ATTEND Family Medicine
DX: R05 Cough (principal)

== ENCOUNTER → 2019-04-11 | Outpatient (REF) | payer OTHER ==
[2019-04-11 11:19] LABS: BASO % 0.4 % (0.0-1.0); EOS # 0.2 10^3/uL (0.0-0.5); EOS % 3.4 % (0.0-3.0); HEMATOCRIT 42.5 % (42.0-52.0); LYMPH # 1.6 10^3/uL (1.5-5.0); LYMPH % 32.1 % (24.0-44.0); MEAN CORPUSCULAR HEMOGLOBIN 29.8 pg (27.0-33.0); MEAN CORPUSCULAR HGB CONC 32.9 g/dl (32.0-36.5); MEAN CORPUSCULAR VOLUME 90.4 fl (80.0-96.0); MONO # 0.4 10^3/uL (0.0-0.8); MONO % 7.6 % (0.0-5.0); NEUTROPHILS # 2.8 10^3/uL (1.5-8.5); NEUTROPHILS % 56.1 % (36.0-66.0); PLATELET COUNT, AUTOMATED 210 10^3/uL (150-450)
== END ==
LOC: M SFHCLERA 07:50
PROVIDERS: ATTEND Family Medicine
DX: R05 Cough (principal)

== ENCOUNTER 2019-06-16 08:16 | Day surgery (SDC) | payer OTHER ==
[~2019-06-16] VITALS: Ht 182.9 cm; Wt 168.9 kg
[~2019-06-16 08:16] MED LIST changes: +ATOR80TA59 PO; +D400400C PO; +HEPARIN SOD (PORCINE) 5000 UNITS/ML VIAL As Ordered ONE; +LIDOCAINE 1% MDV 20ML VIAL As Ordered ONE; +LIDOCAINE 2% INJ 100 MG/5 ML SDV (FOR ANES.) As Ordered ONE; +LIDOCAINE W/EPINEPHRINE 1% 20ML VIAL As Ordered ONE; +LOSA25TA14 PO; +LR 1,000 ML IV ONE; +ONDANSETRON 4MG/2ML VIAL (J2405) As Ordered ONE; +PURE500C5 PO; +ceFAZolin SOD 2 GM in IV 1 EA IV ONE; +dexameTHASONE 4 MG/ML 1ML VIAL (J1100) As Ordered ONE
[2019-06-16] MEDS ORDERED: TRAZ-189 PO (09:00)
[2019-06-16] MEDS ORDERED: ROCURONIUM BROMIDE 50 MG/5 ML VIAL As Ordered ONE (10:08)
[2019-06-16] MEDS ORDERED: propofoL 200 MG/20 ML VIAL As Ordered ONE (10:08)
[2019-06-16] MEDS ORDERED: MIDAZOLAM INJ 2 MG/2 ML VIAL (J2250) As Ordered ONE (10:10)
[2019-06-16] MEDS ORDERED: fentaNYL 100 MCG/2 ML INJECTION (J3010) As Ordered ONE (10:11)
[2019-06-16] MEDS ORDERED: ACETAMINOPHEN 1000MG 100ML IV BTL (OFIRMEV) (J0131 PER 10MG) As Ordered ONE (10:39)
--- NOTE | 2019-06-16 11:47 | ROOPDOC ---
[facility] Report Of Operation Report of Operation DATE OF PROCEDURE: 06/16/19 PREPROCEDURE DIAGNOSES: Left lower extremity symptomatic venous insufficiency, severe reflux left greater saphenous vein POSTPROCEDURE DIAGNOSES: Same PROCEDURE: Left lower extremity greater saphenous vein frequency ablation under ultrasound guidance SURGEON: Aubrey Witt MD ANESTHESIA: LMA anesthesia and local anesthesia INDICATION FOR PROCEDURE: Mr. Donato is a very pleasant 58-year-old gentleman with severe venous insufficiency of the bilateral lower extremity, both deep and superficial, symptomatic with leg aching, pain, heaviness all day despite compression stockings. Risks benefits and alternatives to the left greater saphenous vein ablation were explained to the patient and he is agreeable to proceed. Informed consent was obtained. INTERPRETATION: 1. The greater saphenous vein was ablated from 2 cm distal to the saphenofemoral junction down to the knee after administering tumescence around the vein or ultrasound guidance. REPORT OF OPERATION: The patient was brought to the OR in stable condition and placed supine on the OR table. LMA anesthesia and antibiotics were administered without consultation. His left lower extremity was prepped circumferentially in a sterile fashion a proximally to include the groin. A timeout was performed. Local anesthesia was administered to the skin and subcutaneous tissue over this greater saphenous vein at the knee. Microneedle was used to access the main under ultrasound guidance. A wire was passed through this access and confirmed under ultrasound to be in the greater saphenous vein. A 7 Kyrgyz sheath was placed and flushed with saline. A radiofrequency ablation catheter was then advanced under ultrasound guidance up to the saphenofemoral junction. It was retracted until it was 2 cm distal to the saphenofemoral junction within the greater saphenous vein. Care was taken to make sure that we did not ablate too close to the saphenofemoral junction to prevent propagation of thrombus into the common femoral vein. We then injected tumescence under ultrasound guidance along the length of the vein. We then performed 5 cycles of radiofrequency ablation with ultrasound compression of the vena each cycle. The last cycle was partially overlapped of the fifth cycle and this ablated the vein from 2 cm distal to the saphenofemoral junction all the way to the knee. We then removed the catheter and held pressure for 5 minutes for good hemostasis. Mastisol and Steri-Strips were used to dress the access site. We then placed dry gauze over the tumescence injection site and wrapped the thigh with Kerlix. We then wrapped the patient's left leg with an Mateo wrap from the foot to the groin. He was then allowed to awaken from anesthesia was taken to recovery in stable condition. ESTIMATED BLOOD LOSS: Approximately less than 5 mL. COMPLICATIONS: None. PLAN: Postoperatively over the weekend, the patient should try to rest and elevate his leg as much as possible. It is best if he can leave the dressings and Mateo wrap intact for at least 48 hours postprocedure. It is okay to remove the Mateo wrap after 24 hours if he cannot tolerate it. It is okay to shower after 24 hours with gauze and tape dressings off and rewrap the Mateo wrap after the shower. Analgesia when necessary. Okay to ambulate for short periods throughout the day. No strenuous exercise for [address] and [address] while taking narcotic pain medication. AUBREY WITT MD Jun 16, 2019 11:47
[2019-06-16] MEDS ORDERED: ONDANSETRON 4MG/2ML VIAL (J2405) IV PRN (12:00)
[2019-06-16] MEDS ORDERED: LR 1,000 ML IV SCH (12:00)
--- NOTE | 2019-06-16 12:01 | REP ---
LOWER EXTREMITY ULTRASOUND: HISTORY: Greater saphenous vein reflux. Sonographic guidance is provided to Dr. Witt in the OR who performed radiofrequency venous ablation procedure. Electronically Signed by Filipe Morgan MD 06/16/2019 08:45 P
[2019-06-16] MEDS ORDERED: OXYC1TAB23 PO (12:02)
[2019-06-16] MEDS ORDERED: PERCOCET 5MG/325MG TAB As Ordered ONE (12:02)
[2019-06-16] MEDS: fentaNYL 100 MCG/2 ML INJECTION (J3010) IV PRN ×2 (12:02→12:07)
[2019-06-16] MEDS ORDERED: PERCOCET 5MG/325MG TAB PO PRN (12:15)
[2019-06-16 15:11] VITALS: BP 139/71
--- NOTE | 2019-06-17 10:11 | ECGEPIP ---
[facility] Test Date: 2019-06-16 Pat Name: JOSE KATZ Department: Room: - Gender: Male Forensic Identification Specialist: LIZZETTE : [id number] Requested By: TATE Hartley Order Number: [id number] Reading MD: Abdifatah Rivers Measurements Intervals [place] Rate: 68 P: 8 [place]: 197 QRS: 12 QRSD: 93 T: 36 QT: 400 QTc: 428 Interpretive Statements SINUS RHYTHM LOW QRS VOLTAGE IN PRECORDIAL LEADS Similar to tracing done 04-13-18 Electronically Signed on 06-17-2019 10:10:55 EST by Abdifatah Rivers
== END 2019-06-16 15:58 | disposition home or self-care (01) ==
LOC: M SDC 08:16
PROVIDERS: ATTEND Surgery Vascular Surgery
DX: I87.2 Venous insufficiency (chronic) (peripheral) (principal); I10 Essential (primary) hypertension; E78.5 Hyperlipidemia, unspecified; I25.2 Old myocardial infarction; M12.9 Arthropathy, unspecified; G47.9 Sleep disorder, unspecified; Z79.899 Other long term (current) drug therapy; Z79.01 Long term (current) use of anticoagulants; Z86.718 Personal history of other venous thrombosis and embolism; Z96.653 Presence of artificial knee joint, bilateral; Z98.84 Bariatric surgery status; Z68.42 Body mass index [BMI] 45.0-49.9, adult
CPT/HCPCS: 36475; 76940; 93005; C1769; C1894; J0131; J0690; J1100; J2250; J2405; J3010

== ENCOUNTER → 2019-06-19 | Outpatient (CLI) | payer OTHER ==
[~2019-06-19] MED LIST changes: -HEPARIN SOD (PORCINE) 5000 UNITS/ML VIAL As Ordered ONE; -LIDOCAINE 1% MDV 20ML VIAL As Ordered ONE; -LIDOCAINE 2% INJ 100 MG/5 ML SDV (FOR ANES.) As Ordered ONE; -LIDOCAINE W/EPINEPHRINE 1% 20ML VIAL As Ordered ONE; -LR 1,000 ML IV ONE; -ONDANSETRON 4MG/2ML VIAL (J2405) As Ordered ONE; +OXYC1TAB23 PO; +TRAZ-189 PO; -ceFAZolin SOD 2 GM in IV 1 EA IV ONE; -dexameTHASONE 4 MG/ML 1ML VIAL (J1100) As Ordered ONE
--- NOTE | 2019-06-20 02:58 | REP ---
Clinical: History of venous insufficiency. Technique: Campoverde scale and color Doppler evaluation of the left lower extremity using linear high frequency transducer. Findings: Ultrasound examination of the left lower extremity deep venous structures from the common femoral vein to the popliteal vein demonstrates normal compressibility flow and wave patterns in response to respiration and augmentation. There is no evidence for deep venous thrombosis. Impression: No evidence for deep venous thrombosis. Electronically Signed by Claude Baxter MD 06/20/2019 02:49 A
== END ==
LOC: M RAD 09:54
PROVIDERS: ATTEND Surgery Vascular Surgery
DX: I87.2 Venous insufficiency (chronic) (peripheral) (principal)

== ENCOUNTER 2019-07-20 10:55 | Day surgery (SDC) | payer OTHER ==
[~2019-07-20] VITALS: Ht 177.8 cm; Wt 165.3 kg
[~2019-07-20 10:55] MED LIST changes: -ARTIDRO2 OU; +LR 1,000 ML IV ONE; +POLYOPD OU; +ceFAZolin SOD 2 GM in IV 1 EA IV ONE
[2019-07-20] MEDS ORDERED: SAXE1INJ SC (11:31)
[2019-07-20] MEDS ORDERED: fentaNYL 100 MCG/2 ML INJECTION (J3010) As Ordered ONE (11:40)
[2019-07-20] MEDS ORDERED: MIDAZOLAM INJ 2 MG/2 ML VIAL (J2250) As Ordered ONE (11:40)
[2019-07-20] MEDS ORDERED: propofoL 200 MG/20 ML VIAL As Ordered ONE ×2 (11:41→13:44)
[2019-07-20] MEDS ORDERED: ONDANSETRON 4MG/2ML VIAL (J2405) As Ordered ONE (11:41)
[2019-07-20] MEDS ORDERED: dexameTHASONE 4 MG/ML 1ML VIAL (J1100) As Ordered ONE ×2 (11:41→13:49)
[2019-07-20] MEDS ORDERED: LIDOCAINE 2% INJ 100 MG/5 ML SDV (FOR ANES.) As Ordered ONE (11:41)
[2019-07-20] MEDS ORDERED: LIDOCAINE W/EPINEPHRINE 1% 20ML VIAL As Ordered ONE (12:32)
[2019-07-20] MEDS ORDERED: LIDOCAINE 1% MDV 20ML VIAL As Ordered ONE (12:32)
[2019-07-20] MEDS ORDERED: HEPARIN SOD (PORCINE) 5000 UNITS/ML VIAL (J1644 PER 1000UNITS) As Ordered ONE (12:32)
--- NOTE | 2019-07-20 14:18 | ROOPDOC ---
[facility] Report Of Operation Report of Operation DATE OF PROCEDURE: 07/20/19 PREPROCEDURE DIAGNOSES: Venous insufficiency with pain and edema right lower extremity POSTPROCEDURE DIAGNOSES: Same PROCEDURE: 1. Ultrasound-guided access right greater saphenous vein 2. Right greater saphenous vein radiofrequency ablation SURGEON: Aubrey Witt MD ANESTHESIA: Monitored anesthesia care and local anesthesia 3 mL lidocaine INDICATION FOR PROCEDURE: This is a very pleasant 68-year-old gentleman with severe bilateral lower extremity greater saphenous venous insufficiency status post left lower extremity radiofrequency ablation with significant improvement in symptoms in that leg. He now returns for a right lower extremity radiof requency ablation. Risks benefits and alternatives were explained to the patient and he is agreeable to proceed. Informed consent was obtained. REPORT OF OPERATION: The patient was brought the operating room in stable condition and placed supine on the OR table. 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 His right lower extremity was prepped and draped in a sterile fashion. A timeout was performed. Local anesthesia was administered to skin and subcutaneous tissue over the greater saphenous vein just below the knee. A microneedle was used to access the vein and a wire was passed through this access into the greater saphenous vein under ultrasound guidance. A 7 German sheath was placed and flushed with saline. We then advanced the ablation catheter through the sheath to the saphenofemoral junction. Under ultrasound guidance, we placed the tip of the catheter 2 cm distal to the saphenofemoral junction. We then injected tumescent fluid around the vein under ultrasound guidance until the entire vein was encircled and sufficient tumescence to protect the tissue. We then checked under ultrasound again to make sure that the tip of her catheter was 2 cm from the saphenofemoral junction. We then performed radiofrequency ablation along the length of the greater saphenous vein for a total of 7 cycles. The catheter and sheath were removed and pressure was held for 3 minutes for good hemostasis. Steri-Strips were placed over the access site. We then cleaned and dried the leg and placed 4 x 4's over the tumescent access sites and wrapped thigh and Kerlix. We then wrapped from the foot to the groin with Mateo wraps. The patient was then allowed to awaken from anesthesia was taken to recovery in stable condition. There were no complications and he tolerated the procedure well. ESTIMATED BLOOD LOSS: Approximately 2 mL. COMPLICATIONS: None PLAN: Patient should try to keep right leg wrapped for 72 hours. It's okay to remove the wrap to shower and then replaced Mateo wrap R were compression stockings. He should elevate his leg above the level of the heart at least 30 minutes 3 times a day to help with swelling and healing. Okay to ambulate short distances. He will follow-up for scheduled ultrasound to ensure that the ablation was successful and there is no thrombus extending into the common femoral vein on the right, and he will have a follow-up appointment in the off ice after that as scheduled. Okay to resume home diet and medications. AUBREY WITT MD Jul 20, 2019 14:18
[2019-07-20] MEDS ORDERED: OXYC1TAB23 PO (14:22)
[2019-07-20 16:23] VITALS: BP 133/73
--- NOTE | 2019-07-21 07:57 | REP ---
Ultrasound guidance is provided Dr. MARISABEL layne to the operating room for radiofrequency ablation procedure. Electronically Signed by Filipe Morgan MD 07/21/2019 07:48 A
== END 2019-07-20 16:23 | disposition home or self-care (01) ==
LOC: M SDC 10:55
PROVIDERS: ATTEND Surgery Vascular Surgery
DX: I87.2 Venous insufficiency (chronic) (peripheral) (principal); M79.604 Pain in right leg; R60.0 Localized edema; I10 Essential (primary) hypertension; E72.12 Methylenetetrahydrofolate reductase deficiency; E78.5 Hyperlipidemia, unspecified; I25.2 Old myocardial infarction; M51.06 Intervertebral disc disorders with myelopathy, lumbar region; E66.01 Morbid (severe) obesity due to excess calories; Z68.42 Body mass index [BMI] 45.0-49.9, adult; Z79.01 Long term (current) use of anticoagulants; Z86.718 Personal history of other venous thrombosis and embolism; Z96.653 Presence of artificial knee joint, bilateral; Z98.84 Bariatric surgery status; Z79.899 Other long term (current) drug therapy
CPT/HCPCS: 36475; 76940; C1894; J0690; J1100; J1644; J2250; J2405; J3010

== ENCOUNTER → 2019-07-24 | Outpatient (CLI) | payer OTHER ==
[~2019-07-24] MED LIST changes: -LR 1,000 ML IV ONE; +SAXE1INJ SC; -ceFAZolin SOD 2 GM in IV 1 EA IV ONE
--- NOTE | 2019-07-24 08:38 | REP ---
Right lower extremity deep vein duplex ultrasound for thrombus: The deep veins demonstrate normal compression, normal Doppler color flow and normal Doppler waveforms with respiration and augmentation from the popliteal vein to the common femoral vein. However, there is thrombus throughout the greater saphenous vein from its origin to the knee. Impression: There is no lower extremity deep vein thrombus. However, there is thrombus throughout the greater saphenous vein. Electronically Signed by Fili Yeung MD 07/24/2019 08:29 A
== END ==
LOC: M RAD 07:28
PROVIDERS: ATTEND Surgery Vascular Surgery
DX: I87.2 Venous insufficiency (chronic) (peripheral) (principal)

== ENCOUNTER → 2019-07-27 | Outpatient (REF) | payer OTHER ==
[2019-07-27 12:51] LABS: ALBUMIN 3.5 GM/DL (3.2-5.2); ALT/SGPT 16 U/L (12-78); BILIRUBIN,TOTAL 0.8 MG/DL (0.2-1.0); BLOOD UREA NITROGEN 11 MG/DL (7-18); CALCIUM LEVEL 8.3 MG/DL (8.5-10.1); CARBON DIOXIDE LEVEL 31 MEQ/L (21-32); CHLORIDE LEVEL 107 MEQ/L (98-107); CREATININE FOR GFR 0.78 MG/DL (0.70-1.30); GLOMERULAR FILTRATION RATE > 60.0 (>56); GLUCOSE, FASTING 81 MG/DL (70-100); POTASSIUM SERUM 4.1 MEQ/L (3.5-5.1); SODIUM LEVEL 142 MEQ/L (136-145); TOTAL PROTEIN 6.2 GM/DL (6.4-8.2)
[2019-07-27 12:58] LABS: TOTAL 25(OH) VITAMIN D 20.5 NG/ML (30.0-100.0)
== END ==
LOC: M SFHCLERA 07:37
PROVIDERS: ATTEND Family Medicine
DX: E66.01 Morbid (severe) obesity due to excess calories (principal); E55.9 Vitamin D deficiency, unspecified

== ENCOUNTER → 2019-09-22 | Outpatient (CLI) | payer OTHER ==
--- NOTE | 2019-09-22 12:27 | REPPI ---
REASON FOR EXAM: Back pain. PRIORS: None. There is a slight dextroconvex lumbar curve. The pedicles are intact bilaterally. There is mild posterior disc space narrowing at every level. Mild degenerative facet joint changes are seen bilaterally at every level, particularly L4-5 and L5-S1. L5 appears sacralized. IMPRESSION: Chronic changes as described above. Electronically Signed by Josue Miranda DO 09/22/2019 02:57 P
== END ==
LOC: M PLAIMG 08:55
PROVIDERS: ATTEND Family Medicine
DX: M47.816 Spondylosis without myelopathy or radiculopathy, lumbar region (principal)

== ENCOUNTER → 2020-01-19 | Outpatient (REF) | payer OTHER ==
[2020-01-19 18:06] LABS: CHOLESTEROL RISK RATIO 2.596 (<5)
[2020-01-19 18:21] LABS: FOLATE 2.5 NG/ML (>5.4); TOTAL 25(OH) VITAMIN D 32.3 NG/ML (30.0-100.0)
== END ==
LOC: M LAB REF 09:21
PROVIDERS: ATTEND Family Medicine
DX: Z98.84 Bariatric surgery status (principal)

== ENCOUNTER → 2020-03-14 | Outpatient (REF) | payer OTHER | LOC: M SFHCLERA 15:49 | PROVIDERS: ATTEND Family Medicine | DX: L81.9 Disorder of pigmentation, unspecified (principal) ==

== ENCOUNTER → 2020-08-15 | Outpatient (CLI) | payer OTHER ==
[2020-08-15 12:34] LABS: ALBUMIN 3.5 GM/DL (3.2-5.2); ALT/SGPT 26 U/L (12-78); BILIRUBIN,TOTAL 0.7 MG/DL (0.2-1.0); BLOOD UREA NITROGEN 13 MG/DL (7-18); CALCIUM LEVEL 8.6 MG/DL (8.5-10.1); CARBON DIOXIDE LEVEL 26 MEQ/L (21-32); CHLORIDE LEVEL 107 MEQ/L (98-107); CREATININE FOR GFR 0.75 MG/DL (0.70-1.30); FREE T4 1.05 NG/DL (0.76-1.46); GLOMERULAR FILTRATION RATE > 60.0 (>56); GLUCOSE, FASTING 75 MG/DL (70-100); SODIUM LEVEL 140 MEQ/L (136-145); TOTAL PROTEIN 6.1 GM/DL (6.4-8.2)
== END ==
LOC: M WUC 08:48
PROVIDERS: ATTEND Family Medicine
DX: E66.01 Morbid (severe) obesity due to excess calories (principal)

== ENCOUNTER → 2020-10-31 | Outpatient (CLI) | payer OTHER ==
[2020-10-31 12:26] LABS: BASO % 0.9 % (0.0-1.0); EOS # 0.1 10^3/uL (0.0-0.5); HEMATOCRIT 46.1 % (42.0-52.0); HEMOGLOBIN 14.8 g/dl (13.5-17.5); LYMPH # 1.6 10^3/uL (1.5-5.0); LYMPH % 34.3 % (24.0-44.0); MEAN CORPUSCULAR HEMOGLOBIN 29.4 pg (27.0-33.0); MEAN CORPUSCULAR HGB CONC 32.1 g/dl (32.0-36.5); MEAN CORPUSCULAR VOLUME 91.7 fl (80.0-96.0); MONO # 0.4 10^3/uL (0.0-0.8); NEUTROPHILS # 2.4 10^3/uL (1.5-8.5); NEUTROPHILS % 53.6 % (36.0-66.0); PLATELET COUNT, AUTOMATED 216 10^3/uL (150-450); RED BLOOD COUNT 5.03 10^6/uL (4.30-6.10); WHITE BLOOD COUNT 4.6 10^3/uL (4.0-10.0)
[2020-10-31 13:06] LABS: FREE T4 1.03 NG/DL (0.76-1.46); PERCENT SATURATION 26.9 % (19.7-50.0); THYROID STIMULATING HORMONE 1.85 uIU/ML (0.358-3.740)
[2020-10-31 13:07] LABS: PTH INTACT 95.4 PG/ML (18.5-88.0); TOTAL 25(OH) VITAMIN D 27.8 NG/ML (30.0-100.0)
== END ==
LOC: M WUC 09:27
PROVIDERS: ATTEND Family Medicine
DX: R74.8 Abnormal levels of other serum enzymes (principal); R53.83 Other fatigue

== ENCOUNTER → 2021-05-13 | Outpatient (CLI) | payer OTHER ==
[~2021-05-13] MED LIST changes: +FOLI400T13; +HYDR12.55; +LOSA25TA13 PO; -LOSA25TA14 PO
== END ==
LOC: M SOG 08:09
PROVIDERS: ATTEND Orthopaedic Surgery Sports Medicine
DX: M25.512 Pain in left shoulder (principal)

== ENCOUNTER → 2021-09-30 | Outpatient (CLI) | payer OTHER ==
[2021-09-30 10:59] LABS: CHOLESTEROL RISK RATIO 1.845 (<5)
== END ==
LOC: M WUC 08:27
PROVIDERS: ATTEND Student in an Organized Health Care Education/Training Program
DX: M25.551 Pain in right hip (principal); Z13.1 Encounter for screening for diabetes mellitus; I10 Essential (primary) hypertension

== ENCOUNTER → 2022-02-19 | Outpatient (CLI) | payer OTHER | LOC: M SOG 07:51 | PROVIDERS: ATTEND Orthopaedic Surgery | DX: M54.50 Low back pain, unspecified (principal) ==

== ENCOUNTER → 2023-06-14 | Outpatient (CLI) | payer OTHER ==
[~2023-06-14] MED LIST changes: +ARTIDRO4 OU; +ASCO500C3 PO; -POLYOPD OU; -PURE500C5 PO
== END ==
LOC: M SLEEP 20:00
PROVIDERS: ATTEND Nurse Practitioner Family
DX: G47.33 Obstructive sleep apnea (adult) (pediatric) (principal)

== ENCOUNTER → 2023-08-01 | Outpatient (CLI) | payer OTHER | LOC: M SLEEP 20:00 | PROVIDERS: ATTEND Nurse Practitioner Family | DX: G47.33 Obstructive sleep apnea (adult) (pediatric) (principal) ==